=== PATIENT | male | born 1990 | race American Indian/Alaskan Native ===

== ENCOUNTER 2019-01-15 20:29 | Emergency (ER) | payer MEDICAID, MEDICARE, OTHER ==
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
[2019-01-15 21:52] VITALS: BP 127/78
--- NOTE | 2019-01-15 22:50 | XRay Report ---
PROCEDURE: XR SPINE CERVICAL 2-3V TECHNIQUE: 4 views of the cervical spine HISTORY: neck pain COMPARISONS: None FINDINGS: The bones are normally mineralized. The cervical vertebrae are normal in height and alignment. The di sc spaces are well preserved. The soft tissues are unremarkable. There is no evidence of acute fracture or subluxation. IMPRESSION: Normal C-spine series This document is electronically signed by Masha Griffith MD., January 15 2019 10:48:39 PM ET
--- NOTE | 2019-01-15 22:53 | XRay Report ---
PROCEDURE: XR SPINE LUMBOSACRAL 2-3V TECHNIQUE: 3 views of the lumbar spine HISTORY: back pain COMPARISONS: None FINDINGS: Lumbar vertebral bodies are normal in height and alignment. The disc spaces are well preser enrico. There is no evidence of acute fracture or subluxation. The soft tissues are unremarkable. IMPRESSION: Normal lumbar spine series This document is electronically signed by Masha Griffith MD., January 15 2019 10:51:08 PM ET
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
== END 2019-01-16 03:02 | disposition home or self-care (01) ==
LOC: ED 20:29
DX: M25.511 Pain in right shoulder (principal); Z79.899 Other long term (current) drug therapy; V49.49XA Driver injured in collision with other motor vehicles in traffic accident, initial encounter; Y93.89 Activity, other specified; Y92.488 Other paved roadways as the place of occurrence of the external cause; Y99.8 Other external cause status
CPT/HCPCS: 72040; 72100; 99283